=== PATIENT | female | born 1935 | race Hispanic/Latino ===

== ENCOUNTER → 2018-05-09 | Outpatient (CLI) | payer OTHER | END | disposition home or self-care (01) | LOC: OIH 09:06 | PROVIDERS: ATTEND Internal Medicine | DX: M47.894 Other spondylosis, thoracic region (principal); J20.8 Acute bronchitis due to other specified organisms | CPT/HCPCS: 71046 ==

== ENCOUNTER 2023-04-27 12:40 | Observation (INO) | payer MEDICARE, OTHER ==
[~2023-04-27] VITALS: Ht 149.9 cm; Wt 66.8 kg
[2023-04-27 13:26] LABS: BASOPHILS # (AUTO) 0.04 K/uL (0.00-0.20); BASOPHILS % (AUTO) 0.4 % (0.0-5.0); EOSINOPHILS # (AUTO) 0.11 K/uL (0.00-0.70); HEMATOCRIT 32.2 % (36-48); IMMATURE GRANULOCYTE ABSOLUTE 0.08 K/uL (0-1); LYMPHOCYTES # (AUTO) 1.1 K/uL (1.0-4.8); LYMPHOCYTES % (AUTO) 9.7 % (21.0-51.0); MEAN CORPUSCULAR HEMOGLOBIN 28.8 pg (27.0-33.0); MEAN CORPUSCULAR HGB CONC 33.5 g/dL (32.0-36.0); MEAN CORPUSCULAR VOLUME 85.9 fL (79-99); MONOCYTES # (AUTO) 0.6 K/uL (0.1-1.0); MONOCYTES % (AUTO) 5.5 % (3.0-13.0); NEUTROPHILS # (AUTO) 9.1 K/uL (1.8-7.7); NEUTROPHILS % (AUTO) 82.7 % (40.0-77.0); PLATELET COUNT (AUTO) 368 K/uL (130-400); RED BLOOD CELL COUNT(AUTO) 3.75 MIL/uL (4.00-5.50); RED CELL DISTRIBUTION WIDTH 15.9 % (11.0-15.5)
[2023-04-27 13:44] LABS: CREATININE 1.2 mg/dL (0.5-1.5)
[2023-04-27 13:51] LABS: ALBUMIN 3.2 g/dL (3.5-5.0); BILIRUBIN,TOTAL 1.6 mg/dL (0.2-1.0); TOTAL PROTEIN, SERUM 7.7 g/dL (6.0-8.3)
[2023-04-27] MEDS ORDERED: PANTOPRAZOLE 40 MG/VIAL IVP ONE (14:00)
[2023-04-27] MEDS ORDERED: ONDANSETRON 4MG INJ IVP ONE (14:00)
[2023-04-27] MEDS ORDERED: ASPIRIN 81MG CHEW TAB PO ONE (14:00)
[2023-04-27] MEDS ORDERED: NITROGLYCERIN 0.4 MG SL TAB SL PRN (14:00)
[2023-04-27 14:01] LABS: B-TYPE NATRIURETIC PEPTIDE 569 pg/mL (0-100)
[2023-04-27] MEDS ORDERED: COQ PO (14:20)
[2023-04-27] MEDS ORDERED: FLUT15.845 NS (14:20)
[2023-04-27] MEDS ORDERED: ISOS60TA77 PO (14:20)
[2023-04-27] MEDS ORDERED: LEVO75CA5 PO (14:20)
[2023-04-27] MEDS ORDERED: ZINC50TA64 PO (14:20)
[2023-04-27] MEDS ORDERED: LEVO50CA4 PO (14:20)
[2023-04-27] MEDS ORDERED: ATOR40TA69 PO (14:20)
[2023-04-27] MEDS ORDERED: POLY30DR OP (14:20)
[2023-04-27] MEDS ORDERED: BENZ200C53 PO (14:20)
[2023-04-27] MEDS ORDERED: [UNRECOGNIZED DRUG - OTHER] PO (14:20)
[2023-04-27] MEDS ORDERED: CHOL2000 PO (14:20)
[2023-04-27] MEDS ORDERED: ASPI-1197 PO (14:20)
[2023-04-27] MEDS ORDERED: BUDE10.2 IH (14:20)
[2023-04-27] MEDS ORDERED: BISA-151 PO (14:20)
[2023-04-27] MEDS ORDERED: [UNRECOGNIZED DRUG - OTHER] PO (14:20)
[2023-04-27] MEDS ORDERED: CALC-1062 PO (14:20)
[2023-04-27] MEDS ORDERED: CARV25TA PO (14:20)
[2023-04-27] MEDS ORDERED: 0.9% NACL 500ML IV.SOLN 500 ML IV ONE (15:00)
[2023-04-27] MEDS ORDERED: CEFTRIAXONE 1G VIAL IVPB ONE (16:30)
[2023-04-27] MEDS ORDERED: ONDANSETRON 4MG INJ IVP PRN (19:00)
[2023-04-27] MEDS ORDERED: BENZONATATE 100 MG CAPSULE PO PRN (19:30)
[2023-04-27] MEDS ORDERED: METRONIDAZOLE 500MG/100ML BAG 100 ML ONE (19:58)
[2023-04-27] MEDS: ATORVASTATIN 40 MG TABLET PO SCH (20:02)
[2023-04-27] MEDS: METRONIDAZOLE 500MG/100ML BAG 100 ML IVPB SCH (20:02)
[2023-04-27] MEDS: 1/2 NS 1000ML 1,000 ML IV SCH (20:03)
[2023-04-27] MEDS: ZOSYN 3.375GM +NS 50ML IVPB SCH ×2 (20:06→20:12)
[2023-04-27] MEDS: FLUTICASONE PROPIONATE 50MCG/SPRAY 16 GM BOTTLE NS SCH (20:47)
[2023-04-27] MEDS ORDERED: ISOSORBIDE MONO 60MG SR TAB PO SCH (21:00)
[2023-04-27] MEDS ORDERED: 0.9%NACL 50ML IV SCH (21:00)
[2023-04-27 23:57] VITALS: BP 127/60; PULSE 69; RESP 17
[2023-04-28] MEDS: 1/2 NS 1000ML 1,000 ML IV SCH ×3 (05:00→20:04)
[2023-04-28] MEDS: METRONIDAZOLE 500MG/100ML BAG 100 ML IVPB SCH ×3 (06:00→23:11)
[2023-04-28] MEDS ORDERED: LEVOTHYROXINE 75 MCG TABLET PO SCH (06:30)
[2023-04-28 08:00] VITALS: O2SAT 92
[2023-04-28] MEDS: CA 600MG+VIT D 400 UNIT TAB 1 TAB TABLET PO SCH (09:00)
[2023-04-28] MEDS: BISACODYL 5 MG TABLET.DR PO SCH (09:00)
[2023-04-28] MEDS: [UNRECOGNIZED DRUG - OTHER] PO SCH (09:00)
[2023-04-28] MEDS: ZINC AMINO ACID CHELATE PO SCH (09:00)
[2023-04-28] MEDS: ZOSYN 3.375GM +NS 50ML IVPB SCH ×2 (09:00→20:04)
[2023-04-28] MEDS: PANTOPRAZOLE 40 MG/VIAL IVP SCH (09:00)
[2023-04-28] MEDS: [UNRECOGNIZED DRUG - OTHER] PO SCH (09:00)
[2023-04-28] MEDS: ARTIFICAL TEARS SOL 15 ML OU SCH (09:00)
[2023-04-28] MEDS: COQ10 PO SCH (09:00)
[2023-04-28] MEDS: ***HM***(Cholecalciferol (Vitamin D3) (Vitamin D3) 50 MCG) PO SCH (09:00)
[2023-04-28] MEDS: ENOXAPARIN SODIUM 40 MG/0.4 ML SYRINGE SQ SCH (09:00)
[2023-04-28 16:00] VITALS: BP 152/54; PULSE 69; RESP 16
[2023-04-28 19:04] VITALS: BP 151/64; PULSE 70; RESP 20
[2023-04-28 20:00] VITALS: O2SAT 96
[2023-04-28] MEDS: METOPROLOL TARTRATE 50 MG TAB PO SCH (20:05)
[2023-04-28] MEDS: ATORVASTATIN 40 MG TABLET PO SCH (20:05)
[2023-04-28] MEDS: INSULIN HUMULIN R 100 UNIT/ML 3ML SQ SCH (20:21)
[2023-04-28] MEDS: FLUTICASONE PROPIONATE 50MCG/SPRAY 16 GM BOTTLE NS SCH (20:21)
[2023-04-28] MEDS ORDERED: ISOSORBIDE MONO 60MG SR TAB PO SCH (21:00)
[2023-04-28 23:06] VITALS: BP 146/60; PULSE 70; RESP 18
[2023-04-29 03:56] VITALS: BP 150/58; PULSE 71; RESP 20
[2023-04-29] MEDS: METRONIDAZOLE 500MG/100ML BAG 100 ML IVPB SCH (05:44)
[2023-04-29] MEDS: INSULIN HUMULIN R 100 UNIT/ML 3ML SQ SCH ×2 (06:06→11:30)
[2023-04-29] MEDS ORDERED: LEVOTHYROXINE 50 MCG TABLET PO SCH (06:30)
[2023-04-29 07:48] VITALS: BP 156/73; PULSE 76; RESP 17
[2023-04-29 08:00] VITALS: O2SAT 92
[2023-04-29] MEDS: [UNRECOGNIZED DRUG - OTHER] PO SCH (09:00)
[2023-04-29] MEDS ORDERED: BISACODYL 5 MG TABLET.DR PO SCH (09:00)
[2023-04-29] MEDS: ZINC AMINO ACID CHELATE PO SCH (09:00)
[2023-04-29] MEDS: [UNRECOGNIZED DRUG - OTHER] PO SCH (09:00)
[2023-04-29] MEDS: ***HM***(Cholecalciferol (Vitamin D3) (Vitamin D3) 50 MCG) PO SCH (09:00)
[2023-04-29] MEDS: BISACODYL 5 MG TABLET.DR PO SCH (09:00)
[2023-04-29] MEDS: COQ10 PO SCH (09:00)
[2023-04-29] MEDS: ARTIFICAL TEARS SOL 15 ML OU SCH (09:00)
[2023-04-29] MEDS: ZOSYN 3.375GM +NS 50ML IVPB SCH (09:10)
[2023-04-29] MEDS: ENOXAPARIN SODIUM 40 MG/0.4 ML SYRINGE SQ SCH (09:11)
[2023-04-29] MEDS: CA 600MG+VIT D 400 UNIT TAB 1 TAB TABLET PO SCH (09:11)
[2023-04-29] MEDS: METOPROLOL TARTRATE 50 MG TAB PO SCH (09:12)
[2023-04-29] MEDS: PANTOPRAZOLE 40 MG/VIAL IVP SCH (09:14)
[2023-04-29 12:05] VITALS: BP 153/75; PULSE 70; RESP 17
== END 2023-04-29 18:40 | disposition home or self-care (01) ==
LOC: EDH 12:40 → INTOOBSV 16:52 → EDHIP 16:52 → 3AH 22:05
PROVIDERS: ADMIT Internal Medicine; ATTEND Internal Medicine
DX: K57.32 Diverticulitis of large intestine without perforation or abscess without bleeding (principal); K29.80 Duodenitis without bleeding; K21.9 Gastro-esophageal reflux disease without esophagitis; I10 Essential (primary) hypertension; E03.9 Hypothyroidism, unspecified; I25.10 Atherosclerotic heart disease of native coronary artery without angina pectoris; M19.90 Unspecified osteoarthritis, unspecified site; E78.5 Hyperlipidemia, unspecified; E78.00 Pure hypercholesterolemia, unspecified; I08.0 Rheumatic disorders of both mitral and aortic valves; Z79.899 Other long term (current) drug therapy; Z95.810 Presence of automatic (implantable) cardiac defibrillator
CPT/HCPCS: 96361 ×2; 96365; 96366 ×3; 96367; 96368; 99285; 83735; 84484; 80053; 83880; 83690; 85025; 36415 ×2; 71045; 74176; 96375; 93005; 96376 ×2; 96372 ×2; 82948 ×5; 76700; 87338; J7040; J0696; J2405; J2543 ×4; C9113 ×3; J3490 ×5; J1650 ×2; G0378 ×2; 96374

== ENCOUNTER → 2023-05-23 | Outpatient (CLI) | payer MEDICARE ==
[~2023-05-23] MED LIST: ASPI-1197 PO; ATOR40TA69 PO; BENZ200C53 PO; BISA-151 PO; BUDE10.2 IH; CALC-1062 PO; CARV25TA PO; CHOL2000 PO; COQ PO; FLUT15.845 NS; ISOS60TA77 PO; LEVO50CA4 PO; LEVO75CA5 PO; POLY30DR OP; ZINC50TA64 PO; [UNRECOGNIZED DRUG - OTHER] PO; [UNRECOGNIZED DRUG - OTHER] PO
== END | disposition home or self-care (01) ==
LOC: RAH 09:02
PROVIDERS: ATTEND Internal Medicine Gastroenterology
DX: K44.9 Diaphragmatic hernia without obstruction or gangrene (principal); R14.2 Eructation; K21.9 Gastro-esophageal reflux disease without esophagitis; Z90.49 Acquired absence of other specified parts of digestive tract
CPT/HCPCS: 74240

== ENCOUNTER 2023-10-01 19:06 | Inpatient (IN) | payer MEDICARE ==
[~2023-10-01] VITALS: Ht 124.5 cm; Wt 69.3 kg
[~2023-10-01 19:06] MED LIST changes: +AMLO2.5T4 PO; +AUD IH; -BISA-151 PO; +GUAI600T50 PO; +METO50TA18 PO
[2023-10-01 20:53] LABS: BASOPHILS # (AUTO) 0.17 K/uL (0.00-0.20); BASOPHILS % (AUTO) 0.5 % (0.0-5.0); EOSINOPHILS # (AUTO) 0.04 K/uL (0.00-0.70); EOSINOPHILS % (AUTO) 0.1 % (0.0-8.0); HEMATOCRIT 32.9 % (36-48); IMMATURE GRANULOCYTE ABSOLUTE 0.81 K/uL (0-1); LYMPHOCYTES # (AUTO) 1.8 K/uL (1.0-4.8); LYMPHOCYTES % (AUTO) 5.3 % (21.0-51.0); MEAN CORPUSCULAR HEMOGLOBIN 29.3 pg (27.0-33.0); MEAN CORPUSCULAR HGB CONC 34.7 g/dL (32.0-36.0); MEAN CORPUSCULAR VOLUME 84.6 fL (79-99); MONOCYTES # (AUTO) 2.9 K/uL (0.1-1.0); MONOCYTES % (AUTO) 8.5 % (3.0-13.0); NEUTROPHILS # (AUTO) 28.4 K/uL (1.8-7.7); NEUTROPHILS % (AUTO) 83.2 % (40.0-77.0); PLATELET COUNT (AUTO) 507 K/uL (130-400); RED BLOOD CELL COUNT(AUTO) 3.89 MIL/uL (4.00-5.50); RED CELL DISTRIBUTION WIDTH 18.7 % (11.0-15.5)
[2023-10-01 20:59] LABS: WHITE BLOOD COUNT (AUTO) 34.1 K/uL (4.8-10.8)
[2023-10-01 21:04] LABS: INR 1.17 (0.85-1.15); PROTHROMBIN TIME 13.7 SEC (9.6-11.6)
[2023-10-01 21:05] LABS: PARTIAL THROMBOPLASTIN TIME 32.1 SEC (26.3-35.5)
[2023-10-01 21:10] LABS: CREATININE 1.5 mg/dL (0.5-1.5); POTASSIUM 3.5 mmol/L (3.5-5.1)
[2023-10-01 21:19] LABS: ALBUMIN 1.6 g/dL (3.5-5.0); TOTAL PROTEIN, SERUM 5.4 g/dL (6.0-8.3)
[2023-10-01 21:24] LABS: BAND NEUTROPHILS % (MANUAL) 15 % (0-2); LYMPHOCYTES % (MANUAL) 7 % (22-44); MAN.DIFF COMMENT-IMPRESSION MANUAL DIFFERENTIAL; MONOCYTES % (MANUAL) 12 % (2-9); PLATELET MORPHOLOGY COMMENT INCREASED; SEGMENTED NEUTROPHILS % 66 % (40-70); TOTAL CELLS COUNTED 100; WBC MORPHOLOGY CONSISTENT W/DIFF
[2023-10-01] MEDS: [UNRECOGNIZED DRUG - OTHER] IV ONE (22:04)
[2023-10-01] MEDS: FENTANYL CITRATE PF 50 MCG/1 ML 2ML VIAL IVP ONE (22:15)
[2023-10-02] VITALS (10 sets, daily range): BP systolic 108–139; BP diastolic 41–78; PULSE 74–118; RESP 14–20; O2SAT 96–99
[2023-10-02] MEDS: DEXTROSE 5 %-0.45 % NACL 1,000 ML IV SCH (00:02)
[2023-10-02] MEDS: METRONIDAZOLE 500MG/100ML BAG IV SCH (00:02)
[2023-10-02] MEDS ORDERED: NITR0.4T50 SL (04:44)
[2023-10-02] MEDS ORDERED: PANT40TA54 PO (04:47)
[2023-10-02] MEDS ORDERED: CLON0.1T2 PO (04:47)
[2023-10-02] MEDS ORDERED: ASPI-1443 PO (04:51)
[2023-10-02] MEDS ORDERED: IRON1CAP31 PO (04:51)
[2023-10-02] MEDS ORDERED: ISOS30TA92 PO (04:51)
[2023-10-02] MEDS ORDERED: LACT1CAP80 PO (04:53)
[2023-10-02] MEDS ORDERED: [UNRECOGNIZED DRUG - OTHER] PO (05:03)
[2023-10-02] MEDS ORDERED: CARB10DR5 OU (05:07)
[2023-10-02] MEDS ORDERED: MAGN120C3 PO (05:12)
[2023-10-02] MEDS: RIFAXIMIN 200 MG TABLET PO SCH (10:04)
[2023-10-02 10:42] LABS: BASOPHILS # (AUTO) 0.04 K/uL (0.00-0.20); BASOPHILS % (AUTO) 0.1 % (0.0-5.0); EOSINOPHILS # (AUTO) 0.04 K/uL (0.00-0.70); EOSINOPHILS % (AUTO) 0.1 % (0.0-8.0); HEMATOCRIT 31.2 % (36-48); IMMATURE GRANULOCYTE ABSOLUTE 0.88 K/uL (0-1); LYMPHOCYTES # (AUTO) 1.7 K/uL (1.0-4.8); LYMPHOCYTES % (AUTO) 5.4 % (21.0-51.0); MEAN CORPUSCULAR HEMOGLOBIN 29.1 pg (27.0-33.0); MEAN CORPUSCULAR HGB CONC 33.3 g/dL (32.0-36.0); MEAN CORPUSCULAR VOLUME 87.4 fL (79-99); MONOCYTES # (AUTO) 2.9 K/uL (0.1-1.0); MONOCYTES % (AUTO) 9.5 % (3.0-13.0); NEUTROPHILS # (AUTO) 25.1 K/uL (1.8-7.7); PLATELET COUNT (AUTO) 448 K/uL (130-400); RED BLOOD CELL COUNT(AUTO) 3.57 MIL/uL (4.00-5.50); RED CELL DISTRIBUTION WIDTH 18.4 % (11.0-15.5)
[2023-10-02 10:51] LABS: CREATININE 1.3 mg/dL (0.5-1.5); POTASSIUM 3.1 mmol/L (3.5-5.1)
[2023-10-02 10:56] LABS: ALBUMIN 1.2 g/dL (3.5-5.0); BILIRUBIN,TOTAL 0.7 mg/dL (0.2-1.0); TOTAL PROTEIN, SERUM 4.4 g/dL (6.0-8.3)
[2023-10-02 10:57] LABS: WHITE BLOOD COUNT (AUTO) 30.6 K/uL (4.8-10.8)
[2023-10-02] MEDS ORDERED: COMPOUND PO MISCELLANEOUS 1 EACH MISC MISC PRN (15:00)
[2023-10-02] MEDS ORDERED: PHARMACY COMMUNICATION MISC SCH (15:00)
[2023-10-02] MEDS: VANCOMYCIN 250MG/5ML ORAL SOLUTION 40ML PO SCH (16:55)
[2023-10-02] MEDS ORDERED: ARTIFICAL TEARS SOL 15 ML OU PRN (20:30)
[2023-10-02] MEDS ORDERED: BENZONATATE 100 MG CAPSULE PO PRN (20:30)
[2023-10-02] MEDS ORDERED: NITROGLYCERIN 0.4 MG SL TAB SL PRN (20:30)
[2023-10-02] MEDS ORDERED: CLONIDINE HCL 0.1 MG TABLET PO PRN (20:30)
[2023-10-02] MEDS ORDERED: LEVOTHYROXINE 50 MCG TABLET PO SCH (20:30)
[2023-10-02] MEDS: ATORVASTATIN 40 MG TABLET PO SCH (22:30)
[2023-10-02] MEDS: METOPROLOL TARTRATE 50 MG TAB PO SCH (22:30)
[2023-10-02] MEDS: FLUTICASONE PROPIONATE 50MCG/SPRAY 16 GM BOTTLE EN SCH (22:31)
[2023-10-02] MEDS: ISOSORBIDE MONO 30MG SR TAB PO SCH (22:32)
[2023-10-02] MEDS: ALBUTEROL 0.042% 1.25MG/3ML IH SCH (23:17)
[2023-10-03] VITALS (11 sets, daily range): BP systolic 72–128; BP diastolic 39–85; PULSE 49–90; RESP 16–20; O2SAT 96–100
[2023-10-03 06:16] LABS: BASOPHILS # (AUTO) 0.03 K/uL (0.00-0.20); BASOPHILS % (AUTO) 0.1 % (0.0-5.0); EOSINOPHILS % (AUTO) 0.3 % (0.0-8.0); HEMATOCRIT 30.3 % (36-48); IMMATURE GRANULOCYTE ABSOLUTE 1.99 K/uL (0-1); LYMPHOCYTES # (AUTO) 1.7 K/uL (1.0-4.8); LYMPHOCYTES % (AUTO) 4.7 % (21.0-51.0); MEAN CORPUSCULAR HEMOGLOBIN 28.9 pg (27.0-33.0); MEAN CORPUSCULAR VOLUME 85.1 fL (79-99); MONOCYTES # (AUTO) 3.2 K/uL (0.1-1.0); NEUTROPHILS # (AUTO) 28.4 K/uL (1.8-7.7); NEUTROPHILS % (AUTO) 80.3 % (40.0-77.0); PLATELET COUNT (AUTO) 447 K/uL (130-400); RED BLOOD CELL COUNT(AUTO) 3.56 MIL/uL (4.00-5.50); RED CELL DISTRIBUTION WIDTH 18.3 % (11.0-15.5)
[2023-10-03 06:30] LABS: WHITE BLOOD COUNT (AUTO) 35.4 K/uL (4.8-10.8)
[2023-10-03 06:36] LABS: ALBUMIN 1.1 g/dL (3.5-5.0); BILIRUBIN,TOTAL 0.7 mg/dL (0.2-1.0); CREATININE 1.4 mg/dL (0.5-1.5); TOTAL PROTEIN, SERUM 4.1 g/dL (6.0-8.3)
[2023-10-03 07:43] LABS: BAND NEUTROPHILS % (MANUAL) 12 % (0-2); EOSINOPHILS % (MANUAL) 1 % (1-6); LYMPHOCYTES % (MANUAL) 4 % (22-44); MAN.DIFF COMMENT-IMPRESSION MANUAL DIFFERENTIAL; MONOCYTES % (MANUAL) 5 % (2-9); PLATELET MORPHOLOGY COMMENT SLIGHT INCREASED; SEGMENTED NEUTROPHILS % 78 % (40-70); TOTAL CELLS COUNTED 100
[2023-10-03] MEDS: LEVOTHYROXINE 75 MCG TABLET PO SCH (07:44)
[2023-10-03] MEDS ORDERED: KCL 20 MEQ ERTAB PO PRN (08:00)
[2023-10-03] MEDS ORDERED: COMPOUND IV REFRIGERATED 1 EACH IVSOLN MISC PRN (09:00)
[2023-10-03] MEDS: [UNRECOGNIZED DRUG - OTHER] PO SCH (09:00)
[2023-10-03] MEDS: ASPIRIN 81 MG EC TAB PO SCH (09:11)
[2023-10-03] MEDS: PANTOPRAZOLE 40 MG TAB DR PO SCH (09:11)
[2023-10-03] MEDS: LACTOBACILLUS COMBO NO 10 PO SCH (09:13)
[2023-10-03] MEDS: CHOLECALCIFEROL 50 MCG PO SCH (09:14)
[2023-10-03] MEDS: VITAMIN D3 PO SCH (09:14)
[2023-10-03] MEDS: ZINC AMINO ACID CHELATE PO SCH (09:14)
[2023-10-03] MEDS: CALCIUM CARBONATE PO SCH (09:14)
[2023-10-03] MEDS: MAGNESIUM GLYCINATE MAG OXIDE PO SCH (09:14)
[2023-10-03] MEDS: VIT C PO SCH (09:22)
[2023-10-03] MEDS: B3 PO SCH (09:22)
[2023-10-03] MEDS: [UNRECOGNIZED DRUG - OTHER] PO SCH (09:22)
[2023-10-03] MEDS: PS CMP PO SCH (09:22)
[2023-10-03] MEDS: IRON FUM PO SCH (09:22)
[2023-10-03] MEDS: POTASSIUM CHLORIDE 10% ELIXIR 20 MEQ/15 ML UDCUP PO PRN (11:51)
[2023-10-03] MEDS ORDERED: PHARMACY COMMUNICATION MISC SCH (13:00)
[2023-10-03] MEDS ORDERED: FIDAXOMICIN 200 MG TABLET PO SCH (13:00)
[2023-10-03] MEDS: ONDANSETRON 4MG INJ IVP PRN (14:11)
[2023-10-03] MEDS: POTASSIUM CHLORIDE 20MEQ/100ML 100 ML IV PRN (14:36)
[2023-10-03] MEDS: ALBUMIN (HUMAN) 25% 50 ML IV SCH (16:45)
[2023-10-03] MEDS: FLUTICASONE PROPIONATE 50MCG/SPRAY 16 GM BOTTLE EN SCH (21:14)
[2023-10-03] MEDS: MIDODRINE HCL 5 MG TABLET PO SCH (21:16)
[2023-10-04] VITALS (15 sets, daily range): BP systolic 78–103; BP diastolic 29–42; PULSE 77–92; RESP 18–20; O2SAT 96–100
[2023-10-04] MEDS: MIDODRINE HCL 5 MG TABLET PO PRN (04:48)
[2023-10-04] MEDS: LEVOTHYROXINE 50 MCG TABLET PO SCH (05:52)
[2023-10-04] MEDS: SPIRONOLACTONE 25 MG TAB PO SCH (09:00)
[2023-10-04] MEDS ORDERED: ONDANSETRON 4MG TABLET PO PRN (11:30)
[2023-10-04 17:43] LABS: HEMOGLOBIN A1C 6.2 % (4.0-6.0)
[2023-10-05] VITALS (7 sets, daily range): BP systolic 70–118; BP diastolic 33–68; PULSE 84–100; RESP 16–18; O2SAT 98
== END 2023-10-05 11:10 | disposition hospice, home (50) | DRG 871 ==
LOC: EDH 19:06 → EDHIP 23:25 → 3AH 10-02 02:40
PROVIDERS: ADMIT Internal Medicine; ATTEND Internal Medicine
DX: A41.9 Sepsis, unspecified organism (principal); E43 Unspecified severe protein-calorie malnutrition; A04.71 Enterocolitis due to Clostridium difficile, recurrent; E87.1 Hypo-osmolality and hyponatremia; I50.32 Chronic diastolic (congestive) heart failure; J44.0 Chronic obstructive pulmonary disease with (acute) lower respiratory infection; J98.11 Atelectasis; J96.11 Chronic respiratory failure with hypoxia; Z68.41 Body mass index [BMI] 40.0-44.9, adult; D64.9 Anemia, unspecified; I11.0 Hypertensive heart disease with heart failure; J44.9 Chronic obstructive pulmonary disease, unspecified; Z66 Do not resuscitate; I25.10 Atherosclerotic heart disease of native coronary artery without angina pectoris; K57.90 Diverticulosis of intestine, part unspecified, without perforation or abscess without bleeding; E03.9 Hypothyroidism, unspecified; E78.00 Pure hypercholesterolemia, unspecified; E86.0 Dehydration; N28.9 Disorder of kidney and ureter, unspecified; R65.20 Severe sepsis without septic shock; I35.0 Nonrheumatic aortic (valve) stenosis; K21.9 Gastro-esophageal reflux disease without esophagitis; E87.6 Hypokalemia; Z51.5 Encounter for palliative care; Z87.01 Personal history of pneumonia (recurrent); Z82.49 Family history of ischemic heart disease and other diseases of the circulatory system; Z95.810 Presence of automatic (implantable) cardiac defibrillator
CPT/HCPCS: 36415; 71045; 71250; 74176; 80053; 82270; 82306; 82550; 82607; 82746; 83036; 83540; 83605; 84484; 85025; 85610; 85730; 87040; 87324; 93970; 94640; 94664; 99291; 99292; G0378; J2405; J3010; J3370; J3480; J3490; J7042; P9047